=== PATIENT | female | born 2000 | race American Indian/Alaskan Native ===

== ENCOUNTER 2018-05-27 13:29 | Emergency (ER) | payer SELFPAY ==
[2018-05-27 13:57] VITALS: BMI 36.1
[2018-05-27 14:04] VITALS: BP 105/73; PULSE 92; RESP 18; TEMP 98.2; O2SAT 99
--- NOTE | 2018-05-27 14:59 | C.PDOC ---
History Of Present Illness 17 year old female comes in complaining that she has been having increased vaginal bleeding for the past month. Patient states her period comes intermittently, 3 times in the past month. Patient denies any pain, use of oral contraceptives, back pain, or vomiting. Patient notes that she gave back in july of 2017 and breastfed for the first month and stopped in August. Patient hasnt breastfed since and states her period was normal afterwards. Time Seen by Provider: 05/27/18 14:21 Chief Complaint (Nursing): Female Genitourinary History Per: Patient History/Exam Limitations: no limitations Onset/Duration Of Symptoms: Days Current Symptoms Are (Timing): Still Present Past Medical History Reviewed: Historical Data, Nursing Documentation, Vital Signs Vital Signs: Last Vital Signs Temp 98.2 F 05/27/18 14:03 Pulse 92 H 05/27/18 14:03 Resp 18 05/27/18 14:03 BP 105/73 05/27/18 14:03 Pulse Ox 99 05/27/18 14:03 Family History: States: No Known Family Hx - Social History Hx Alcohol Use: No Hx Substance Use: No - Immunization History Hx Tetanus Toxoid Vaccination: No Hx Influenza Vaccination: No Hx Pneumococcal Vaccination: No Review Of Systems Except As Marked, All Systems Reviewed And Found Negative. Constitutional: Negative for: Fever Gastrointestinal: Negative for: Vomiting, Diarrhea Genitourinary: Positive for: Vaginal Bleeding. Negative for: Dysuria Musculoskeletal: Negative for: Back Pain Physical Exam - Physical Exam Appears: Non-toxic, No Acute Distress Skin: Warm, Dry Head: Atraumatic, Normacephalic Eye(s): bilateral: Normal Inspection Oral Mucosa: Moist Neck: Supple Chest: Symmetrical Cardiovascular: Rhythm Regular, No Murmur Respiratory: Normal Breath Sounds, No Rales, No Rhonchi, No Wheezing Gastrointestinal/Abdominal: Soft, No Tenderness Extremity: Bilateral: Atraumatic, Normal Color And Temperature, Normal ROM Neurological/Psych: Oriented x3, Normal Speech ED Course And Treatment O2 Sat by Pulse Oximetry: 99 (RA) Pulse Ox Interpretation: Normal Medical Decision Making Medical Decision Making: Plan: --POC POC is negative for . The patient has normal physical exam and no need for further diagnostic testing at this time. Disposition - Disposition Referrals: Jerardo Cates MD [Staff Provider] - [facility] [Outside] [facility]. [facility] [Outside] Disposition: HOME/ ROUTINE Disposition Time: 15:26 Condition: STABLE Additional Instructions: Follow up with the medical doctor within 1-2 days. 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 - Scribe Statement The provider has reviewed the documentation as recorded by the Scribe Nan Tong All medical record entries made by the Alexiibtyson were at my direction and personally dictated by me. I have reviewed the chart and agree that the record accurately reflects my personal performance of the history, physical exam, medical decision making, and the department course for this patient. I have also personally directed, reviewed, and agree with the discharge instructions and disposition.
== END 2018-05-27 15:36 | disposition home or self-care (01) ==
LOC: C.ER 13:29
DX: N92.1 Excessive and frequent menstruation with irregular cycle (principal)

== ENCOUNTER 2018-06-26 21:52 | Emergency (ER) | payer SELFPAY ==
[2018-06-26 21:52] VITALS: BMI 36.1
[2018-06-26 22:05] VITALS: BP 112/71; TEMP 98.4; O2SAT 100
[2018-06-26] MEDS ORDERED: cefTRIAXone (Rocephin) 250 mg Inj IM STA (22:14)
--- NOTE | 2018-06-26 22:22 | C.PDOC ---
History Of Present Illness 17 year old female presents to ED with request for medical clearance. Patient states that her boyfriend was told that he has chlamydia, but still has no definitive diagnosis. Contrary to triage patient denies cough and cold complaints stating she only mentioned that because she did not feel comfortable stating the real reason to the triage nurse. Patient complains of no symptoms and denies pelvic cramping, groin pain, dysuria, discharge, or lesions. Chief Complaint (Nursing): Cough, Cold, Congestion History Per: Patient History/Exam Limitations: no limitations Onset/Duration Of Symptoms: Hrs Associated Symptoms: denies: Urinary Symptoms, Other (pelvic pain,cramping, discharge, or lesions ) Abnormal Vaginal Bleeding: No Past Medical History Reviewed: Historical Data, Nursing Documentation, Vital Signs Vital Signs: Last Vital Signs Temp 98.4 F 06/26/18 21:57 Pulse 110 H 06/26/18 21:57 Resp 22 06/26/18 21:57 BP 112/71 06/26/18 21:57 Pulse Ox 100 06/26/18 21:57 - Medical History PMH: No Chronic Diseases Surgical History: No Surg Hx Family History: States: Unknown Family Hx - Social History Hx Alcohol Use: No Hx Substance Use: No - Immunization History Hx Tetanus Toxoid Vaccination: No Hx Influenza Vaccination: No Hx Pneumococcal Vaccination: No Review Of Systems Constitutional: Negative for: Fever, Chills, Weakness Cardiovascular: Negative for: Chest Pain Respiratory: Negative for: Cough, Shortness of Breath Gastrointestinal: Negative for: Nausea, Vomiting, Abdominal Pain Genitourinary: Negative for: Dysuria, Vaginal Discharge, Vaginal Bleeding, Pelvic Pain Musculoskeletal: Negative for: Back Pain Skin: Negative for: Lesions Neurological: Negative for: Weakness, Numbness, Dizziness Physical Exam - Physical Exam Appears: Well, Non-toxic, No Acute Distress Skin: Normal Color, Warm, Dry Head: Atraumatic, Normacephalic Neck: Normal ROM, Supple Chest: Symmetrical, No Deformity Respiratory: No Accessory Muscle Use Pelvic: Other (declined) Extremity: Capillary Refill (<2 seconds) Extremity: Bilateral: Atraumatic, Normal Color And Temperature Pulses: Left Radial: Normal, Right Radial: Normal Neurological/Psych: Oriented x3, Normal Speech, Normal Cognition ED Course And Treatment O2 Sat by Pulse Oximetry: 100 Medical Decision Making Medical Decision Making: Progress: Patient treated empirically. Clamydia/GC ,Urine test, urinalysis ordered for patient. Rocephin IM and Zithromax PO given to patient. Upon reassessment, patient is resting comfortably and in no distress. Patient is advised to follow up with PMD with 1-2 days. 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 (Philly Patel) - Scribe Statement The provider has reviewed the documentation as recorded by the Scribe (Philly Patel) All medical record entries made by the Scribe were at my direction and personally dictated by me. I have reviewed the chart and agree that the record accurately reflects my personal performance of the history, physical exam, medical decision making, and the department course for this patient. I have also personally directed, reviewed, and agree with the discharge instructions and disposition.
[2018-06-26 22:42] VITALS: PULSE 97; RESP 18
== END 2018-06-26 22:41 | disposition home or self-care (01) ==
LOC: C.ER 21:52
DX: Z20.2 Contact with and (suspected) exposure to infections with a predominantly sexual mode of transmission (principal)
CPT/HCPCS: 81025; 87491; 87591; 96372; 99284; J0696

== ENCOUNTER 2018-07-17 20:16 | Emergency (ER) | payer SELFPAY ==
[2018-07-17 20:16] VITALS: BMI 36.1
[2018-07-17 20:32] VITALS: BP 114/86; PULSE 86; RESP 18; TEMP 98.7; O2SAT 99
--- NOTE | 2018-07-17 20:51 | C.PDOC ---
History Of Present Illness 17 y/o female presents to the ED after having positive home test. Patient states she has had 3 tests that were positive in the last week. She reports she is now 11 days late on her period. Otherwise she denies any nausea, vomiting, pelvic pain, vaginal bleeding or discharge. Requesting test. Time Seen by Provider: 07/17/18 20:34 Chief Complaint (Nursing): Female Genitourinary History Per: Patient History/Exam Limitations: no limitations Onset/Duration Of Symptoms: Days Current Symptoms Are (Timing): Still Present Pain Scale Rating Of: 0 Associated Symptoms: denies: Nausea, Vomiting, Urinary Symptoms Abnormal Vaginal Bleeding: No Past Medical History Reviewed: Historical Data, Nursing Documentation, Vital Signs Vital Signs: Last Vital Signs Temp 98.7 F 07/17/18 20:27 Pulse 86 07/17/18 20:27 Resp 18 07/17/18 20:27 BP 114/86 07/17/18 20:27 Pulse Ox 99 07/17/18 20:27 - Medical History PMH: No Chronic Diseases Surgical History: No Surg Hx Family History: States: Unknown Family Hx - Social History Hx Alcohol Use: No Hx Substance Use: No - Immunization History Hx Tetanus Toxoid Vaccination: No Hx Influenza Vaccination: No Hx Pneumococcal Vaccination: No Review Of Systems Constitutional: Negative for: Fever Gastrointestinal: Negative for: Nausea, Vomiting Genitourinary: Negative for: Dysuria, Vaginal Discharge, Vaginal Bleeding, Pelvic Pain Neurological: Negative for: Weakness, Dizziness Physical Exam - Physical Exam Appears: Well, Non-toxic, No Acute Distress Skin: Normal Color, Warm, No Rash Head: Atraumatic, Normacephalic Eye(s): bilateral: Normal Inspection, PERRL, EOMI Neck: Normal ROM Chest: Symmetrical Respiratory: No Accessory Muscle Use, Other (Normal inspiratory effort) Extremity: Bilateral: Atraumatic, Normal ROM Neurological/Psych: Oriented x3, Normal Cranial Nerves Gait: Steady ED Course And Treatment O2 Sat by Pulse Oximetry: 99 (RA) Pulse Ox Interpretation: Normal Medical Decision Making Medical Decision Making: Plan: POC urine preg negative. Patient notified of results. Will discharge patient home, advised to follow up with GAS SYSTEMS WORKER. 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 - Scribe Statement The provider has reviewed the documentation as recorded by the Scribe Lucie Smith All medical record entries made by the Scribe were at my direction and personally dictated by me. I have reviewed the chart and agree that the record accurately reflects my personal performance of the history, physical exam, medical decision making, and the department course for this patient. I have also personally directed, reviewed, and agree with the discharge instructions and disposition.
== END 2018-07-17 20:57 | disposition home or self-care (01) ==
LOC: C.ER 20:16 → SUPCPDRO 20:16 → C.ER 20:57
DX: Z32.02 Encounter for pregnancy test, result negative (principal)